=== PATIENT | female | born 2000 | race African-American/Black ===

== ENCOUNTER 2022-03-20 16:26 | Observation (INO) | payer OTHER, SELFPAY ==
--- NOTE | ~2022-03-20 | CT_ITS ---
EXAMINATION: CT abdomen pelvis w con DATE: 03/20/2022 20:22 INDICATION: Abscess of the buttocks TECHNIQUE: Computed tomography (CT) of the abdomen and pelvis was performed with 100 cc Omnipaque 350 intravenous contrast. The dose-length product was 765.65 mGy-cm. Automated exposure control and iter ative reconstruction technique were employed. COMPARISON: None. FINDINGS: Lung bases are unremarkable. Heart size normal. No significant pleural or pericardial effus ion. The liver, spleen, pancreas, adrenal glands and kidneys are unremarkable. Gallbladder is present . No free air or free fluid. There are mildly enlarged inguinal lymph nodes, likely reactive. No abno rmal pelvic masses or fluid collections. In the gluteal region there is an irregular shaped fluid col lection with enhancing de la rosa measuring 8.4 x 4.8 x 8.8 cm, consistent with abscess. Fluid collection crosses the midline. No underlying osseous abnormality. IMPRESSION: 1. Irregular shaped abscess of the posterior subcutaneous soft tissues at the sacral level measuring 8.4 x 4.8 x 8.8 cm. Reviewed, dictated and finalized at location A. IMPRESSION: 1. Irregular shaped abscess of the posterior subcutaneous soft tissues at the s acral level measuring 8.4 x 4.8 x 8.8 cm.
[2022-03-20 16:29] VITALS: BP 124/77; PULSE 107; RESP 20; TEMP 36.3; O2SAT 100
--- NOTE | 2022-03-20 19:16 | ED.SKABFB ---
HPI - Skin/Abscess/Foreign Bdy General Chief complaint: Skin/Abscess/Foreign Body <Andreina Mooney PA-C - Last Filed: 03/21/22 00:28> Stated complaint: abcess to buttocks <Andreina Mooney PA-C - Last Filed: 03/21/22 00:28> Time Seen by Provider: 03/20/22 18:53 <Andreina Mooney PA-C - Last Filed: 03/21/22 00:28> Source: patient <Andreina Mooney PA-C - Last Filed: 03/21/22 00:28> Mode of arrival: ambulatory <Andreina Mooney PA-C - Last Filed: 03/21/22 00:28> Limitations: no limitations <Andreina Mooney PA-C - Last Filed: 03/21/22 00:28> History of Present Illness HPI narrative: This is a 21-year-old female that presents to the emergency department for an abscess to her left buttock present over the last 2 weeks. Reports over the last couple of days she has noted an area to the right buttock as well. She has not had any drainage from the area. Denies fevers. <Andreina Mooney PA-C - Last Filed: 03/21/22 00:28> Related Data Allergies/Adverse reactions: Allergies Allergy/AdvReac Type Severity Reaction Status Date / Time No Known Allergies Allergy Verified 03/21/22 00:38 <Andreina Mooney PA-C - Last Filed: 03/21/22 00:28> Review of Systems Review of Systems: CONSTITUTIONAL: Denies fever GASTROINTESTINAL: Denies vomiting SKIN: Reports abscess <Andreina Mooney PA-C - Last Filed: 03/21/22 00:28> All systems reviewed & are unremarkable except as noted in HPI and below <Andreina Mooney PA-C - Last Filed: 03/21/22 00:28> [facility] Past Medical History Medical History: Medical History (Updated 03/21/22 @ 00:28 by Andreina Mooney PA-C) No active medical problems <Andreina Mooney PA-C - Last Filed: 03/21/22 00:28> Social History Social History: Social History (Updated 03/20/22 @ 19:17 by Andreina Mooney PA-C) Smoking status: Never smoker Alcohol intake: never Substance use: former Spiritual care concerns: No <Andreina Mooney PA-C - Last Filed: 03/21/22 00:28> Exam Narrative: GENERAL: Well-appearing, well-nourished, and in no acute distress. HEAD: Normocephalic, atraumatic. EYES: EOMI. CHEST: No respiratory distress. HEART: Regular rate BACK: Left buttock with moderate sized area of erythema and edema with central fluctuance. Right sided small area of erythema and edema EXTREMITIES: Normal range of motion. No edema. SKIN: Warm, dry, no rash. NEURO: No focal deficits. Alert and oriented x3. PSYCH: Normal mood and affect <Andreina Mooney PA-C - Last Filed: 03/21/22 00:28> Course [employer] OPERATOR/PA Physician Supervision For this patient encounter, I reviewed the [employer] PA[employer] MIXER OPERATOR or PA documentation, treatment plan, and medical decision making; and I had [id number] time with this patient. Assisted identifying the abscess using ultrasound. Abscess was drained and packing was applied. Patient was started antibiotics and admitted for further evaluation. <Roderick Prasad MD - Last Filed: 03/21/22 01:03> Consultations Consultation #1: Spoke with Dr. Dudley about patient and work-up who will consult. <Andreina Mooney PA-C - Last Filed: 03/21/22 00:28> Date: 03/21/22 <Andreina Mooney PA-C - Last Filed: 03/21/22 00:28> Consultation #2: Spoke with hospitalist about patient and work-up who accepts admission <Andreina Mooney PA-C - Last Filed: 03/21/22 00:28> Date: 03/20/22 <Andreina Mooney PA-C - Last Filed: 03/21/22 00:28> Vital Signs Vital signs: Vital Signs Temperature 97.4 F L 03/20/22 16:29 Pulse Rate 107 H 03/20/22 16:29 Respiratory Rate 20 03/20/22 16:29 Blood Pressure 124/77 03/20/22 16:29 Pulse Oximetry 100 03/20/22 16:29 Oxygen Delivery Room Air 03/20/22 16:29 Temperature 97.4 F L 03/20/22 16:29 Pulse Rate 98 03/20/22 22:40 Respiratory Rate 16 03/20/22 22:40 Blood Pressure 130/76 03/20/22 22:40 Pulse Oximetry 98 03/20/22 22:40 Oxygen Delivery Room Air 03/20/22 16:29
[2022-03-20 19:45] LABS: Basophils Absolute Auto 0.1 K/mm3 (0.0-0.1); Basophils Percent Auto 0.4 % (0.2-1.2); Eosinophils Absolute Auto 0.3 K/mm3 (0-0.3); Eosinophils Percent Auto 1.3 % (0-4.4); Hematocrit 42.4 % (37.0-47.0); Hemoglobin 14.7 g/dL (12.0-15.0); Immature Granulocyte Absolute 0.15 K/mm3 (0.00-0.031); Immature Granulocyte Percent A 0.7 % (0-0.5); Lymphocytes Absolute Auto 1.99 K/mm3 (0.9-3.2); Lymphocytes Percent Auto 9.3 % (18.3-44.2); Mean Corpuscular HGB Conc 34.7 g/dl (32-36); Mean Corpuscular Hemoglobin 30.2 pg (26-34); Mean Corpuscular Volume 87.2 fl (80-100); Mean Platelet Volume 8.9 fl (7.4-10.4); Monocytes Absolute Auto 1.4 K/mm3 (0.1-0.6); Monocytes Percent Auto 6.3 % (2.6-8.5); Neutrophils Absolute Auto 17.6 K/mm3 (1.3-6.7); Platelet Count Result 400 k/mm3 (150-375); Red Blood Count 4.86 M/mm3 (4.2-5.4); Red Cell Distribution Width 12.2 % (11.5-14.5); White Blood Count 21.4 K/mm3 (4.5-10.0)
[2022-03-20 20:17] LABS: Estimated CRCL calculation 112 ml/min; Estimated Glomerular Filt Rate > 60
[2022-03-20 20:19] LABS: Alanine Aminotransferase 23 U/L (6-35); Albumin Level 3.9 g/dL (3.7-5.6); Alkaline Phosphatase 111 U/L (45-116); Anion Gap 11 mmol/L (8-16); Aspartate Amino Transferase 24 U/L (14-36); Bilirubin,Total 0.6 mg/dL (0.2-1.3); Blood Urea Nitrogen 7 mg/dL (8-21); Calcium 8.9 mg/dL (8.9-10.7); Carbon Dioxide 26 mmol/L (22-30); Chloride 102 mmol/L (98-107); Estimated CRCL calculation 99 ml/min; Estimated Glomerular Filt Rate > 60; Glucose 104 mg/dL (65-110); Potassium 3.6 mmol/L (3.4-5.0); Sodium 139 mmol/L (134-143)
[2022-03-20 20:41] LABS: CRP 23.6 mg/dL (<1.0)
[2022-03-20 20:43] LABS: Erythrocyte Sedimentation Rate 37 mm/hr (0-20)
[2022-03-20] MEDS: metroNIDAZOLE 500 MG/ISO 100ML 500 MG/100 ML BAG 100 MG IVPB (20:57)
[2022-03-20] MEDS: SODIUM CHLORIDE 0.9% IV 1,000 ML 999 ML IV CONT (20:57)
--- NOTE | 2022-03-20 21:15 | PM.IMHP ---
H&P: HPI History of Present Illness Date/Time: 03/20/22 21:15 Chief Complaint: buttock abscess Narrative: This is a 21-year-old female with known significant past medical history patient presents to the emergency room due to area of pain, tenderness, bulging, of her left buttock according to patient has been developing over the last 2 weeks or so and just got worse over the last couple of days. Patient denies any fevers, rigors, chills, nausea, vomiting, abdominal pain, diarrhea. Patient had I&D in the emergency room. Preliminary workup was significant for WBC 21,000, CT of abdomen and pelvis: IMPRESSION: 1. Irregular shaped abscess of the posterior subcutaneous soft tissues at the sacral level measuring 8.4 x 4.8 x 8.8 cm. Review of Systems Review of Systems: left buttock tenderness, swelling, for the last couple of weeks. Constitutional: Constitutional: Denies chills, Denies fever(s), Denies malaise, Denies night sweats and Denies poor appetite Eyes: Eyes: Denies change in vision ENT: Denies dysphagia, Denies vertigo, Denies dizziness and Denies odynophagia Cardiovascular: Cardiovascular: Denies chest pain, Denies irregular heart rhythm, Denies lightheadedness and Denies palpitations Respiratory: Respiratory: Denies chest congestion and Denies cough Gastrointestinal: Gastrointestinal: Denies abdominal pain, Denies dyspepsia, Denies heartburn, Denies diarrhea and Denies nausea Genitourinary: Genitourinary: Reports no additional female genitourinary complaints and Reports as per HPI Musculoskeletal: Musculoskeletal: Reports no additional musculoskeletal complaints and Reports as per HPI Integumentary/Breasts: Skin/Breast: Reports swelling and Reports erythema Comments: left buttock Neurologic: Denies vertigo, Denies dizziness, Denies focal weakness and Denies Sensory deficit (Neuro) Psychiatric: Psychiatric: Reports no additional psychiatric complaints and Reports as per HPI Endocrine: Endocrine: Denies cold intolerance, Denies flushing, Denies heat intolerance, Denies polyphagia, Denies polydipsia and Denies palpitations Hematologic/Lymphatic: Hematologic/Lymphatic: Reports no additional hematologic/lymphatic complaints and Reports as per HPI Allergic/Immunologic: Allergic/Immunologic: Reports no additional allergic/immunologic complaints and Reports as per HPI [facility] Past Medical History Medical History (Updated 03/21/22 @ 03:02 by Rita Ocampo MD) No active medical problems Social History Social History (Updated 03/20/22 @ 19:17 by Andreina Mooney PA-C) Smoking status: Never smoker Alcohol intake: never Substance use: former Spiritual care concerns: No Meds Home Medications and Allergies Allergies Allergy/AdvReac Type Severity Reaction Status Date / Time No Known Allergies Allergy Verified 03/21/22 00:38 Vital Signs Vital Signs - 24 hr 03/20/22 16:29 Temperature 97.4 F L Pulse Rate 107 H Respiratory Rate 20 Blood Pressure 124/77 Pulse Oximetry 100 Oxygen Delivery Room Air Exam Narrative: patient is laying in prone position in stretcher Const: General: comfortable, no acute distress, well developed, alert, awake and average body habitus Nutritional Appearance: average body habitus Orientation/consciousness: patient oriented x3 HENMT: Head: normal to inspection, normocephalic and atraumatic Ears: hearing grossly normal bilaterally Face/Nose/Sinus: normal facial exam Face and sinus: normal facial exam Eyes: General: appearance normal, both eyes and all related structures Pupils: Equal, round and reactive pupils present EOM: EOMs intact bilaterally Neck: Neck: full ROM, no lymphadenopathy and no JVD Thyroid: thyroid normal Lymphatic: no lymphadenopathy noted Resp: Effort & Inspection: normal respiratory effort and able to speak in complete sentences Auscultation: clear to auscultation bilaterally Cardio: Jugular venous distension: no JVD Rate: r
[2022-03-20 22:40] VITALS: BP 130/76; PULSE 98; RESP 16; O2SAT 98
[2022-03-20] MEDS: KETOROLAC 15 MG/ML VIAL (*BKC) (23:06)
[2022-03-21] LABS: SARS-CoV-2 RNA PCR Negative
[2022-03-21 00:10] VITALS: BP 97/58; PULSE 115; RESP 18; TEMP 35.8; O2SAT 98
--- NOTE | 2022-03-21 00:25 | ADMGEN ---
This patient, James Edouard, was admitted to Medical Room 344-01. Patient/family oriented to hospital policies and general routines including ID bracelet, bed and alarms, visiting hours, pain management, procedures, bathroom and other care routines, personal items, smoking policy, room service/diet, and visiting hours. Information on how to activate the Rapid Response Team has been discussed. Patient/Family are encouraged to report perceived risks to care and to ask questions if they do not understand what they are told or what they should do.
[2022-03-21] MEDS: DEXTROSE 5%/0.45% SOD CHL 1,000 ML 75 ML IV CONT ×2 (03:58→21:35)
[2022-03-21 04:03] VITALS: BP 96/50; PULSE 97; RESP 18; TEMP 36.1; O2SAT 100
--- NOTE | 2022-03-21 04:18 | PC.NURSE ---
Dr Galloway notified of bp 96/50 pt asymptomatic, will monitor. IVF started
[2022-03-21] MEDS: metroNIDAZOLE 500 MG/ISO 100ML 500 MG/100 ML BAG 100 MG IVPB ×3 (04:54→21:32)
[2022-03-21 05:40] LABS: Basophils Absolute Auto 0.1 K/mm3 (0.0-0.1); Basophils Percent Auto 0.4 % (0.2-1.2); Eosinophils Absolute Auto 0.4 K/mm3 (0-0.3); Eosinophils Percent Auto 1.5 % (0-4.4); Hematocrit 35.5 % (37.0-47.0); Immature Granulocyte Absolute 0.22 K/mm3 (0.00-0.031); Immature Granulocyte Percent A 0.9 % (0-0.5); Lymphocytes Absolute Auto 2.79 K/mm3 (0.9-3.2); Lymphocytes Percent Auto 11.9 % (18.3-44.2); Mean Corpuscular HGB Conc 33.8 g/dl (32-36); Mean Corpuscular Hemoglobin 29.9 pg (26-34); Mean Corpuscular Volume 88.5 fl (80-100); Mean Platelet Volume 9.2 fl (7.4-10.4); Monocytes Absolute Auto 1.9 K/mm3 (0.1-0.6); Neutrophils Absolute Auto 18.2 K/mm3 (1.3-6.7); Neutrophils Percent Auto 77.3 % (45.5-73.1); Platelet Count Result 355 k/mm3 (150-375); Red Blood Count 4.01 M/mm3 (4.2-5.4); Red Cell Distribution Width 12.2 % (11.5-14.5); White Blood Count 23.5 K/mm3 (4.5-10.0)
[2022-03-21 05:56] LABS: Alanine Aminotransferase 16 U/L (6-35); Alkaline Phosphatase 73 U/L (45-116); Anion Gap 11 mmol/L (8-16); Aspartate Amino Transferase 15 U/L (14-36); Bilirubin,Total 0.5 mg/dL (0.2-1.3); Blood Urea Nitrogen 6 mg/dL (8-21); Calcium 8.1 mg/dL (8.9-10.7); Carbon Dioxide 28 mmol/L (22-30); Chloride 101 mmol/L (98-107); Estimated CRCL calculation 99 ml/min; Estimated Glomerular Filt Rate > 60; Glucose 119 mg/dL (65-110); Potassium 3.2 mmol/L (3.4-5.0); Sodium 140 mmol/L (134-143)
[2022-03-21] MEDS: ENOXAPARIN 40 MG/0.4 ML SYRINGE SUB-Q (08:05)
[2022-03-21] MEDS: traMADol HCL (*CRX) 50 MG TABLET PO ×2 (08:37→14:16)
--- NOTE | 2022-03-21 10:06 | PM.CNGS ---
Assessment and Plan Assessment and plan (1) Pilonidal cyst with abscess: Code(s): L05.01 - Pilonidal cyst with abscess Status: Acute Assessment and Plan: Based on the patient's history of possible brief swelling and clearance of lumps along the crease I suspect that the infection she currently has is related to a pilonidal cyst that became infected and then tunneled under the subcutaneous tissues in the sacral coccygeal area. Patient now has a fairly large abscess possibly related to a pilonidal cyst infection. At this time it seems to be drained well and most of the purulence can be compressed out of the area to the opening made in the ED. Plan will be to continue daily showering and dressing change with repacking of the abscess allowing it to heal in from right to left. Continuing IV antibiotics empirically until cultures return then plan to convert to oral antibiotics tailored to the type of bacteria and antibiotic sensitivity for a possible total 10-14 day course of antibiotics. Hopefully if cultures return and we can focus the antibiotic therapy and patient may be able to be discharged this weekend. She has a roommate at [facility] who is a nursing home director. She will contact her to see if she would be willing to help with the packing / dressing changes once patient is discharged. Will then plan to follow her up in the office late next week and continue to work with her to get this abscess cleared up. I did mention to her that eventually once the infection is gone she may need a pilonidal cystectomy to try to prevent future occurrences of the same problem. (2) Abscess of skin or subcutaneous tissue: Qualifiers: Site of cutaneous abscess: buttock Qualified Code(s): L02.31 - Cutaneous abscess of buttock Code(s): L02.91 - Cutaneous abscess, unspecified Status: Acute Assessment and Plan: see plan above. (3) Leukocytosis: Code(s): D72.829 - Elevated white blood cell count, unspecified Status: Acute Assessment and Plan: Still elevated today but there was a lot of purulence still within the abscess cavity that was noted on CT scan. This was compressed out today during the dressing change. History of Present Illness Consult details Consult date: 03/21/22 Reason for consult: other (Abscess left upper inner buttock near the midline) Requesting physician: Rita Ocampo MD Narrative: ?This is a 21-year-old Black female with no known significant past medical history. The patient presented to the [facility] room on the evening of 03/20/2022 due to an area of pain, tenderness, and bulging of her left buttock. According to patient it has been developing over the last 2 weeks or so and just got worse over the last couple of days with mainly enlargement and increasing pain.? Patient denies any fevers, rigors, chills, nausea, vomiting, abdominal pain, diarrhea.? Patient had I&D in the emergency room with a culture taken and quarter-inch Nu Gauze packing inserted after the incision and drainage. Preliminary workup was significant for WBC 21,000 with most other labs being normal. A CT of abdomen and pelvis showed and 8 x 8 x 4 cm area of suspected abscess more to the left but that did cross the midline toward the right overlying the lower sacrum and coccyx area. Review of Systems Review of Systems: All systems reviewed & are unremarkable except as noted in HPI and below (HPI) Constitutional: Constitutional: Reports as per HPI, Denies chills and Denies fever(s) Eyes: Eyes: Reports no additional eye complaints ENT: Reports Normal hearing present and Denies dizziness Cardiovascular: Cardiovascular: Reports no additional cardiovascular complaints, Denies chest pain and Denies irregular heart rhythm Respiratory: Respiratory: Reports no additional respiratory complaints Gastrointestinal: Gastrointestinal: Reports no additional gastrointestinal complaints, Denies ab
--- NOTE | 2022-03-21 11:22 | PM.IMPN ---
Progress Note: A&P Assessment and Plan (1) Abscess of skin or subcutaneous tissue: Qualifiers: Site of cutaneous abscess: buttock Qualified Code(s): L02.31 - Cutaneous abscess of buttock Code(s): L02.91 - Cutaneous abscess, unspecified Status: Acute Assessment and Plan: admit to regular medical floor status post I&D in the emergency room surgery consult started on Keflex and Flagyl IV fluids supportive care CT of abdomen and pelvis reviewed (2) Leukocytosis: Code(s): D72.829 - Elevated white blood cell count, unspecified Status: Acute Assessment and Plan: likely secondary to 1. Continue to monitor Subjective Date/time seen: 03/21/22 11:22 Patient was seen during the morning rounds today. Feeling slightly better, pain controlled, no sob or chest pain. Review of Systems Review of Systems: All systems reviewed & are unremarkable except as noted in HPI and below (the history and physical exam.) Constitutional: Constitutional: Denies chills, Denies fever(s), Denies malaise, Denies night sweats and Denies poor appetite Eyes: Eyes: Denies change in vision ENT: Denies dysphagia, Denies vertigo, Denies dizziness and Denies odynophagia Cardiovascular: Cardiovascular: Denies chest pain, Denies irregular heart rhythm, Denies lightheadedness and Denies palpitations Respiratory: Respiratory: Denies chest congestion and Denies cough Gastrointestinal: Gastrointestinal: Denies abdominal pain, Denies dysphagia, Denies dyspepsia, Denies heartburn, Denies diarrhea, Denies nausea and Denies odynophagia Genitourinary: Genitourinary: Reports no additional female genitourinary complaints and Reports as per HPI Musculoskeletal: Musculoskeletal: Reports no additional musculoskeletal complaints and Reports as per HPI Integumentary/Breasts: Skin/Breast: Reports swelling and Reports erythema Neurologic: Denies vertigo, Denies dizziness, Denies focal weakness and Denies Sensory deficit (Neuro) Psychiatric: Psychiatric: Reports no additional psychiatric complaints and Reports as per HPI Endocrine: Endocrine: Denies cold intolerance, Denies flushing, Denies heat intolerance, Denies polyphagia, Denies polydipsia and Denies palpitations Hematologic/Lymphatic: Hematologic/Lymphatic: Reports no additional hematologic/lymphatic complaints and Reports as per HPI Allergic/Immunologic: Allergic/Immunologic: Reports no additional allergic/immunologic complaints and Reports as per HPI Exam Narrative: patient is laying comfortably in bed. Const:?? General: comfortab le, no acute distr ess, well develope d, alert, awake an d average body hab itus? Nutritional Appearance: averag e body habitus? Or ientation/consciou sness: patient lavelle ented x3 HENMT:?? Head: normal to in spection, normocep halic and atraumat ic? Ears: hearing grossly normal yeni aterally? Face/Nos e/Sinus: normal fa cial exam? Face an d sinus: normal fa cial exam Eyes:?? General: appearanc e normal, both eye s and all related structures? Pupils : Equal, round and reactive pupils p resent? EOM: EOMs intact bilaterally Neck:?? Neck: full ROM, no lymphadenopathy a nd no JVD? Thyroid : thyroid normal? Lymphatic: no lymp hadenopathy noted Resp:?? Effort & I
[2022-03-21] MEDS: POTASSIUM CHLORIDE 20 MEQ TABLET 40 MEQ PO (12:28)
[2022-03-21 14:00] VITALS: BP 95/58; PULSE 84; RESP 20; TEMP 36.3; O2SAT 100
[2022-03-21 21:55] VITALS: BP 101/57; PULSE 75; RESP 20; TEMP 36.8; O2SAT 100
[2022-03-22 05:42] LABS: Basophils Absolute Auto 0.1 K/mm3 (0.0-0.1); Basophils Percent Auto 0.7 % (0.2-1.2); Eosinophils Absolute Auto 0.5 K/mm3 (0-0.3); Eosinophils Percent Auto 4.2 % (0-4.4); Hematocrit 33.1 % (37.0-47.0); Hemoglobin 11.4 g/dL (12.0-15.0); Immature Granulocyte Absolute 0.17 K/mm3 (0.00-0.031); Immature Granulocyte Percent A 1.4 % (0-0.5); Lymphocytes Absolute Auto 2.86 K/mm3 (0.9-3.2); Lymphocytes Percent Auto 23.5 % (18.3-44.2); Mean Corpuscular HGB Conc 34.4 g/dl (32-36); Mean Corpuscular Volume 87.1 fl (80-100); Monocytes Absolute Auto 0.9 K/mm3 (0.1-0.6); Monocytes Percent Auto 7.2 % (2.6-8.5); Neutrophils Absolute Auto 7.7 K/mm3 (1.3-6.7); Platelet Count Result 335 k/mm3 (150-375); Red Cell Distribution Width 12.4 % (11.5-14.5); White Blood Count 12.2 K/mm3 (4.5-10.0)
[2022-03-22] MEDS: metroNIDAZOLE 500 MG/ISO 100ML 500 MG/100 ML BAG 100 MG IVPB (05:43)
[2022-03-22 05:55] LABS: Anion Gap 10 mmol/L (8-16); Blood Urea Nitrogen 5 mg/dL (8-21); Calcium 8.1 mg/dL (8.9-10.7); Carbon Dioxide 27 mmol/L (22-30); Chloride 104 mmol/L (98-107); Estimated CRCL calculation 112 ml/min; Estimated Glomerular Filt Rate > 60; Glucose 111 mg/dL (65-110); Potassium 3.6 mmol/L (3.4-5.0); Sodium 141 mmol/L (134-143)
[2022-03-22 06:00] VITALS: BP 106/62; PULSE 70; RESP 16; TEMP 36.5; O2SAT 100
[2022-03-22] MEDS: ENOXAPARIN 40 MG/0.4 ML SYRINGE SUB-Q (08:06)
--- NOTE | 2022-03-22 11:02 | PM.DS ---
DS: Admitting Diagnosis Discharge Date 03/22/2022 Admitting Diagnosis abscess DS: Discharge Diagnosis Discharge Diagnosis (1) Abscess of skin or subcutaneous tissue: Qualifiers: Site of cutaneous abscess: buttock Qualified Code(s): L02.31 - Cutaneous abscess of buttock Code(s): L02.91 - Cutaneous abscess, unspecified Status: Acute Assessment and Plan: admit to regular medical floor status post I&D in the emergency room surgery consult started on Keflex and Flagyl IV fluids supportive care CT of abdomen and pelvis reviewed (2) Leukocytosis: Code(s): D72.829 - Elevated white blood cell count, unspecified Status: Acute Assessment and Plan: likely secondary to 1. Continue to monitor DS: Summary Hospital Course Reason for hospitalization: Abscess Hospital Course: 21-year-old female was admitted complains of having abscess. patient abscess was drained and culture was sent. Patient was given IV antibiotics. Culture shows mixed samara, will monitor report. Today patient is feeling better so patient was discharged home stable condition. Status at Discharge Cognitive/behavioral status at discharge: Stable Time Spent with Patient Time attestation: Total time spent providing and/or coordinating discharge services: Exam Narrative: patient is laying comfortably in bed. Const:?? General: comfortab le, no acute distr ess, well develope d, alert, awake an d average body hab itus? Nutritional Appearance: averag e body habitus? Or ientation/consciou sness: patient lavelle ented x3 HENMT:?? Head: normal to in spection, normocep halic and atraumat ic? Ears: hearing grossly normal yeni aterally? Face/Nos e/Sinus: normal fa cial exam? Face an d sinus: normal fa cial exam Eyes:?? General: appearanc e normal, both eye s and all related structures? Pupils : Equal, round and reactive pupils p resent? EOM: EOMs intact bilaterally Neck:?? Neck: full ROM, no lymphadenopathy a nd no JVD? Thyroid : thyroid normal? Lymphatic: no lymp hadenopathy noted Resp:?? Effort & Inspectio n: normal respirat ory effort and abl e to speak in comp lete sentences? Au scultation: clear to auscultation bi laterally Cardio:?? Jugular venous dis tension: no JVD? R ate: regular rate? Rhythm: regular r hythm? Heart sound s: S1 normal heart sound present and S2 normal heart s ound present GI:?? GI Palp: Yes Soft to palpation and Y es No hepatospleno megaly present :?? General: Yes defer red Skin:?? Rashes: no rashes? Wounds: no wounds ? Other: ?left but tock area of fluct uance discoloratio n and tenderness u pper inner quadran t Neuro:?? General: patient o
--- NOTE | 2022-03-22 11:13 | PM.PNGS ---
Progress Note: A&P Assessment and Plan (1) Pilonidal cyst with abscess: Code(s): L05.01 - Pilonidal cyst with abscess Status: Acute Assessment and Plan: Okay to discharge today. Continue Bactrim and Cipro as prescribed. Follow-up with Dr. Dudley in 1 week. Subjective Subjective Date/Time Seen: 03/22/22 11:13 Interval history: Pain improving. Tolerating packing changes. No fevers. Exam Skin: Other: Minimal purulence drainage from pilonidal abscess I and D site. No surrounding erythema. Objective Data Vital Signs Vital Signs: Vital Signs - 24 hr 03/21/22 14:00 03/21/22 21:55 03/22/22 06:00 Temperature 36.3 C L 36.8 C 36.5 C Pulse Rate 84 75 70 Respiratory Rate 20 20 16 Blood Pressure 95/58 L 101/57 L 106/62 Pulse Oximetry 100 100 100 Intake/Output Intake/Output: Intake & Output 03/19/22 03/20/22 03/21/22 03/22/22 23:59 23:59 23:59 23:59 Intake Total 1150 3340 690 Output Total 400 Balance 1150 2940 690 Meds/Results Medications: Active Medications Generic Name Dose Route Start Last Admin Trade Name Freq PRN Reason Stop Dose Admin Acetaminophen 1,000 mg 03/21/22 03:04 Acetaminophen 500 Mg Tablet PO Q6H PRN Mild Pain (1-3) or Fever Docusate Sodium 100 mg 03/21/22 03:05 Docusate Sodium 100 Mg Capsule PO Q12H PRN Constipation Enoxaparin Sodium 40 mg 03/21/22 09:00 03/22/22 08:06 Enoxaparin 40 Mg/0.4 Ml Syringe SUB-Q 40 mg DAILY KASH Administration Cefazolin Sodium 1 gm in 50 mls @ 100 mls/hr 03/21/22 05:00 03/22/22 06:14 Ancef 1 Gm/D5w 50 Ml Pm IVPB Infused Q8H KASH Infusion Metronidazole 500 mg in 100 mls @ 100 mls/hr 03/21/22 05:00 03/22/22 06:40 Flagyl 500 Mg/Iso Soln 100 Ml IVPB Infused Q8H KASH Infusion Dextrose/Sodium Chloride 1,000 mls @ 75 mls/hr 03/21/22 03:05 03/21/22 21:35 Dextrose 5% Sodium Chloride 0.45% IV CONT 75 mls/hr .[id number] KASH Administration Tramadol HCl 50 mg 03/21/22 03:04 03/21/22 14:16 Tramadol Hcl (*Crx) 50 Mg Tablet PO 50 mg Q4H PRN Administration Pain Rated 4-6 Radiology Results: ITS Impressions Abdomen/Pelvis CT 03/20/22 20:33 IMPRESSION: 1. Irregular shaped abscess of the posterior subcutaneous soft tissues at the sacral level measuring 8.4 x 4.8 x 8.8 cm. Labs Labs: Laboratory Results - last 24 hr 03/22/22 03/22/22 05:22 05:22 WBC 12.2 H RBC 3.80 L Hgb 11.4 L Hct 33.1 L MCV 87.1 MCH 30.0 MCHC 34.4 RDW 12.4 Plt Count 335 MPV 9.0 Immature Gran % (Auto) 1.4 H Neut % (Auto) 63.0 Lymph % (Auto) 23.5 Dickson % (Auto) 7.2 Eos % (Auto) 4.2 Baso % (Auto) 0.7 Lymph # (Auto) 2.86 Dickson # (Auto) 0.9 H Eos # (Auto) 0.5 H Baso # (Auto) 0.1 Abs Immat Gran (auto) 0.17 H Absolute Neuts (auto) 7.7 H Absolute Nucleated RBC 0.0 Nucleated RBC % 0.0 Sodium 141 Potassium 3.6 Chloride 104 Carbon Dioxide 27 Anion Gap 10 BUN 5 L Creatinine 0.70 Estim Creat Clear Calc 112 Estimated GFR > 60 Glucose 111 H Calcium 8.1 L
[2022-03-22] MEDS: traMADol HCL (*CRX) 50 MG TABLET PO (13:29)
== END 2022-03-22 14:45 | disposition home or self-care (01) ==
LOC: ANHED 19:36 → ANH3MED 03-21 00:28
PROVIDERS: Physician Assistant; Surgery; Admitting Provider Internal Medicine; Emergency Provider Emergency Medicine; Visit Provider Internal Medicine
DX: L05.01 Pilonidal cyst with abscess (principal); D72.829 Elevated white blood cell count, unspecified; Z20.822 Contact with and (suspected) exposure to COVID-19
CPT/HCPCS: 10060; 36415; 74177; 80048; 80053; 81025; 83605; 85025; 85652; 86140; 87040; 87070; 87205; 96361; 96365; 96366; 96367; 96368; 96372; 99285; A9270; C9803; G0378; G0379; J0690; J1650; J1885; J7030; Q9967; U0003; U0005

== ENCOUNTER 2023-01-30 11:00 | Emergency (ER) | payer OTHER, SELFPAY ==
[2023-01-30 11:11] VITALS: BP 116/76; PULSE 53; RESP 16; TEMP 36.8; O2SAT 100
--- NOTE | 2023-01-30 11:11 | ED.FEMALEGU ---
HPI - Female Genitourinary General Chief complaint: Urogenital-Female Stated complaint: uti symptoms Time Seen by Provider: 01/30/23 11:12 Source: patient, RN notes reviewed and old records reviewed Mode of arrival: ambulatory Limitations: no limitations History of Present Illness HPI Narrative: 22-year-old female presents to the [facility] with concerns for a UTI. Patient reports frequency urgency for couple of days. Denies any chances for STIs. Denies any abdominal pain or back pain. Denies fevers. Denies any vaginal discharge. Unsure of status Related Data Allergies Allergy/AdvReac Type Severity Reaction Status Date / Time No Known Allergies Allergy Verified 01/30/23 11:16 Review of Systems Review of Systems: All systems reviewed & are unremarkable except as noted in HPI and below Constitutional: Constitutional: Reports no additional constitutional complaints Eyes: Eyes: Reports no additional eye complaints ENT: Reports system reviewed and no additional complaints, except as documented Cardiovascular: Cardiovascular: Reports no additional cardiovascular complaints, Denies chest pain and Denies dyspnea Respiratory: Respiratory: Reports no additional respiratory complaints, Denies chest congestion, Denies cough and Denies dyspnea Gastrointestinal: Gastrointestinal: Reports no additional gastrointestinal complaints, Denies abdominal pain, Denies nausea and Denies vomiting Genitourinary: Genitourinary: Reports as per HPI Musculoskeletal: Musculoskeletal: Reports no additional musculoskeletal complaints Integumentary/Breasts: Skin/Breast: Reports system reviewed and no additional complaints, except as docu Neurologic: Reports system reviewed and no additional complaints, except as documented Psychiatric: Psychiatric: Reports no additional psychiatric complaints Allergic/Immunologic: Allergic/Immunologic: Reports no additional allergic/immunologic complaints [facility] Past Medical History Medical History No active medical problems Family History Family History Mother H/O pilonidal cyst Social History Social History Smoking status: Never smoker Alcohol intake: never Substance use: former Spiritual care concerns: No Comments At the time of my signature, I reviewed and agree with the nursing past medical, surgical, social, and family history. There is no relevant family history pertinent to the patient complaint. Exam Const: General: cooperative, healthy appearing, comfortable, no acute distress, well developed, alert and well nourished Nutritional Appearance: well nourished Orientation/consciousness: patient oriented x3 Limitations: no limitations HENMT: Head: normal to inspection Ears: hearing grossly normal bilaterally and external ears normal Face/Nose/Sinus: Normal external nose present, Normal nares present, Normal nasal mucous membranes and turbinates present and normal facial exam Face and sinus: normal facial exam Eyes: General: appearance normal, both eyes and all related structures Alignment and Position: alignment normal Periorbital: periorbital findings normal Pupils: Equal, round and reactive pupils present EOM: EOMs intact bilaterally Neck: Neck: normal visual inspection, full ROM, no lymphadenopathy and no meningeal signs Chest: Chest palpation & inspection: normal inspection of the chest Resp: Effort & Inspection: normal respiratory effort and able to speak in complete sentences Cardio: Rate: regular rate Rhythm: regular rhythm GI: GI Palp: No abdominal tenderness : General: Yes no CVA tenderness Back/Spine/Pelvis: Cervical Spine: cervical ROM normal Thoracic/Lumbar Spine: No thoracic spinal tenderness Skin: General skin exam: normal color and no rashes or lesions noted Lesions: no lesions
== END 2023-01-30 11:25 | disposition home or self-care (01) ==
PROVIDERS: Emergency Provider Nurse Practitioner
DX: N30.01 Acute cystitis with hematuria (principal)
CPT/HCPCS: 81003; 87086; 87088; 99213; G0463

== ENCOUNTER 2023-02-25 17:41 | Emergency (ER) | payer OTHER, SELFPAY ==
--- NOTE | ~2023-02-25 | CT_ITS ---
EXAMINATION: CT pelvis w con INDICATION: Pilonidal cyst TECHNIQUE: Computed tomographic images of the pelvis were obtained after the administration of 100 cc of Omnipaque 350 intravenous contrast. The dose-length product (DLP) was 677.53 mGy-cm. Automated ex posure control and iterative reconstruction technique were employed. COMPARISON: 03/20/2022 FINDINGS: The visualized portions of the liver, spleen, gallbladder, and kidneys appear normal. No fr ee intraperitoneal gas or evidence of bowel obstruction. There is a 4.5 x 3.6 x 4.5 cm abscess in the posterior subcutaneous tissues just caudal to the coccyx. The visualized osseous structures are unre markable. There is mild bilateral inguinal lymphadenopathy, likely reactive. A small volume of free f luid in the pelvis is likely physiologic. IMPRESSION: 1. Findings consistent with pilonidal cyst abscess Reviewed, dictated and finalized at location F.
[2023-02-25 17:43] VITALS: BP 117/96; PULSE 82; RESP 20; TEMP 37; O2SAT 100
--- NOTE | 2023-02-25 18:43 | ED.SKABFB ---
HPI - Skin/Abscess/Foreign Bdy General Chief complaint: Skin/Abscess/Foreign Body Stated complaint: pilonidal cyst Time Seen by Provider: 02/25/23 18:18 History of Present Illness HPI narrative: 22-year-old female with a history of infected pilonidal cyst reports for evaluation for painful and red pilonidal cyst to her buttock. Patient states she was hospitalized approximately 1 year ago for an infected pilonidal cyst. Upon chart review, her CT showed a sacral abscess measuring 8.4 x 4.8 x 8.8 cm, leukocytosis of 21.4, CRP 23.6. She was then admitted and seen by general surgery and discharged home with Bactrim and Cipro. She states since then, the cyst has become inflamed twice, both times have spontaneously drained. She has not needed to be started on antibiotics or had a repeat I&D. Patient states she began having pain and redness in this area 4 to 5 days ago. She states she does not feel the size of the abscess is as large as it was when she was admitted, however the pain is worse. She reports taking ibuprofen today without improvement. She is scheduled to see a surgeon for evaluation of the pilonidal cyst in 6 days. She denies fever, nausea or vomiting, pain with defecation, hematochezia, dysuria or hematuria, abdominal pain. Related Data Allergies Allergy/AdvReac Type Severity Reaction Status Date / Time No Known Allergies Allergy Verified 02/24/23 14:33 Review of Systems Review of Systems: CONSTITUTIONAL: Denies fever, chills EYES: Denies visual changes, redness, or discharge. ENT: Denies rhinorrhea, congestion, sore throat, or otalgia. CARDIOVASCULAR: Denies chest pain, palpitations, or edema. RESPIRATORY: Denies cough or dyspnea. GASTROINTESTINAL: Denies abdominal pain, nausea, vomiting, or diarrhea. GENITOURINARY: Denies dysuria or hematuria. SKIN: See HPI MUSCULOSKELETAL: Denies back pain, joint pain, or myalgia. NEUROLOGIC: Denies headache, numbness, dizziness, or weakness. PSYCHIATRIC: Denies anxiety or depression. [facility], [facility] Past Medical History Medical History Asthma No active medical problems Family History Family History Mother H/O pilonidal cyst Other Cancer Cerebrovascular accident Social History Social History Smoking status: Current every day smoker Tobacco type: cigars Alcohol intake: current Substance use: former Spiritual care concerns: No Exam Narrative: GENERAL: Well-appearing, in no acute distress. Patient resting comfortably in exam bed. She is pleasant and conversational. HEAD: Normocephalic EYES: PERRLA ENT: Nares clear. Mucous membranes moist. Oropharynx without tonsillar hypertrophy exudate or other lesions. NECK: Supple. CHEST: No respiratory distress. Clear to auscultation, no adventitious breath sounds. HEART: Regular rate and rhythm. No murmur heard. Normal peripheral pulses. ABDOMEN: Soft, nontender, normal active bowel sounds. EXTREMITIES: Normal range of motion. No edema. SKIN: Gluteal cleft with tenderness and induration. Left buttock with an area of warmth, tenderness and induration with a 1cm area of fluctuance. R buttock with an area of induration and warmth. No spontaneous drainage. NEURO: No focal deficits. Alert and oriented x3. PSYCH: Normal mood and affect. Course Vital Signs Vital signs: Vital Signs Temperature 98.6 F 02/25/23 17:43 Pulse Rate 82 02/25/23 17:43 Respiratory Rate 20 02/25/23 17:43 Blood Pressure 117/96 H 02/25/23 17:43 Pulse Oximetry 100 02/25/23 17:43 Oxygen Delivery Room Air 02/25/23 17:43 Temperature 98.6 F 02/25/23 17:43 Pulse Rate 95 02/25/23 20:15 Respiratory Rate 18 02/25/23 20:15 Blood Pressure 105/62 02/25/23 20:15 Pulse Oximetry 100 02/25/23 20:15 Oxygen Delivery Room Air 02/25/23 17:43
[2023-02-25 19:09] LABS: Basophils Percent Auto 0.3 % (0.2-1.2); Eosinophils Absolute Auto 0.1 K/mm3 (0-0.3); Eosinophils Percent Auto 0.5 % (0-4.4); Hematocrit 38.2 % (37.0-47.0); Hemoglobin 13.1 g/dL (12.0-15.0); Immature Granulocyte Absolute 0.05 K/mm3 (0.00-0.031); Immature Granulocyte Percent A 0.3 % (0-0.5); Lymphocytes Absolute Auto 1.66 K/mm3 (0.9-3.2); Lymphocytes Percent Auto 11.2 % (18.3-44.2); Mean Corpuscular HGB Conc 34.3 g/dl (32-36); Mean Corpuscular Volume 90.3 fl (80-100); Mean Platelet Volume 9.7 fl (7.4-10.4); Monocytes Absolute Auto 0.8 K/mm3 (0.1-0.6); Monocytes Percent Auto 5.6 % (2.6-8.5); Neutrophils Absolute Auto 12.1 K/mm3 (1.3-6.7); Neutrophils Percent Auto 82.1 % (45.5-73.1); Platelet Count Result 239 k/mm3 (150-375); Red Blood Count 4.23 M/mm3 (4.2-5.4); Red Cell Distribution Width 12.6 % (11.5-14.5); White Blood Count 14.8 K/mm3 (4.5-10.0)
[2023-02-25] MEDS: SODIUM CHLORIDE 0.9% IV 1,000 ML 999 ML IV CONT (19:11)
[2023-02-25] MEDS: MORPHINE SULFATE (*CRX) 4 MG/ML INJ IV PUSH (19:11)
[2023-02-25 19:22] LABS: Appearance Urine Clear (Clear); Bacteria Urine None Seen /hpf; Bilirubin Urine Negative (Negative); Blood Urine Trace (Negative); Color Urine Yellow (Yellow); Glucose Urine UA Negative (Negative); Ketones Urine 1+ mg/dL (Negative); Leukocyte Esterase Ur Trace LEU/UL (Negative); Nitrate Urine Negative (Negative); Non Pathogenic Casts 0-2; Protein Urine 1+ mg/dL (Negative); Specific Grav Ur 1.028 (1.001-1.035); Squamous Epithelial Cell Urine Occasional /hpf (Few)
[2023-02-25 19:25] LABS: Alanine Aminotransferase 16 U/L (6-35); Albumin Level 4.3 g/dL (3.5-5.1); Alkaline Phosphatase 78 U/L (38-126); Anion Gap 6 mmol/L (8-16); Aspartate Amino Transferase 19 U/L (14-36); Bilirubin,Total 0.6 mg/dL (0.2-1.3); Blood Urea Nitrogen 7 mg/dL (7-17); Calcium 8.9 mg/dL (8.4-10.2); Carbon Dioxide 26 mmol/L (22-30); Chloride 106 mmol/L (98-107); Estimated CRCL calculation 130 ml/min; Estimated Glomerular Filt Rate > 60; Glucose 92 mg/dL (65-110); Potassium 3.9 mmol/L (3.4-5.0); Sodium 138 mmol/L (137-145)
[2023-02-25 19:26] LABS: Add Urine Microscopic? YES
[2023-02-25 19:35] LABS: Erythrocyte Sedimentation Rate 26 mm/hr (0-20)
[2023-02-25 19:39] LABS: CRP 14.7 mg/dL (<1.0)
[2023-02-25 20:15] VITALS: BP 105/62; PULSE 95; RESP 18; O2SAT 100
[2023-02-25] MEDS: LIDO 1%/EPINEPHRINE 1:100,000 20 ML VIAL 10 ML INFILTRATE (21:10)
[2023-02-25] MEDS: SULFAMETHOXAZOLE/TRIMETHOPRIM 800/160 MG DS TABLET 1 TAB PO (21:58)
[2023-02-25] MEDS: CIPROFLOXACIN 500 MG TAB PO (21:58)
[2023-02-25 21:59] VITALS: BP 110/62; PULSE 77; RESP 17; O2SAT 100
== END 2023-02-25 21:59 | disposition home or self-care (01) ==
PROVIDERS: Emergency Provider Physician Assistant
DX: L05.01 Pilonidal cyst with abscess (principal); J45.909 Unspecified asthma, uncomplicated
CPT/HCPCS: 10061; 10080; 36415; 72193; 80053; 81001; 81025; 85025; 85652; 86140; 87086; 87088; 96361; 96374; 99284; A9270; J2270; J7030; Q9967

== ENCOUNTER 2023-04-21 05:44 | Emergency (ER) | payer OTHER, SELFPAY ==
[2023-04-21 05:47] VITALS: BP 118/86; PULSE 107; RESP 15; TEMP 36.1; O2SAT 99
--- NOTE | 2023-04-21 07:16 | PC.NURSE ---
Report given to TIBURCIO Prince at this time.
[2023-04-21 07:17] VITALS: BP 114/62; PULSE 79; RESP 16; O2SAT 100
--- NOTE | 2023-04-21 07:30 | ED.SKABFB ---
HPI - Skin/Abscess/Foreign Bdy General Chief complaint: Skin/Abscess/Foreign Body Stated complaint: cyst that grew an abcess Time Seen by Provider: 04/21/23 07:05 History of Present Illness HPI narrative: Pt has a recurrence of her pilonidal cyst. Pt has had in drained a couple of times prior. Pt has not seen a surgeon yet. Pt says it starts on left side and goes across to right but is not on right side yet. Pt denies drainage this time. Pt denies fever. Related Data Allergies Allergy/AdvReac Type Severity Reaction Status Date / Time No Known Allergies Allergy Verified 04/21/23 07:17 Review of Systems Review of Systems: All systems reviewed & are unremarkable except as noted in HPI and below PMFSH Past Medical History Medical History Asthma No active medical problems Family History Family History Mother H/O pilonidal cyst Other Cancer Cerebrovascular accident Social History Social History Smoking status: Current every day smoker Tobacco type: cigars Alcohol intake: current Substance use: former Spiritual care concerns: No Exam Const: General: healthy appearing Nutritional Appearance: well nourished Orientation/consciousness: patient oriented x3 Limitations: no limitations GI: Auscultation: normal bowel sounds Skin: General skin exam: normal color Rashes: no rashes Other: tender fluctuant area left of midline near upper gluteal cleft no extension to right side noted. Neuro: General: patient oriented x3, moves all extremities and no focal motor deficits Speech: normal speech Extrem: General: normal to inspection and no clubbing, cyanosis or edema Psych: Mental Status: mental status grossly normal Affect: normal affect Attitude: cooperative Course Vital Signs Vital signs: Vital Signs Temperature 97 F L 04/21/23 05:47 Pulse Rate 107 H 04/21/23 05:47 Respiratory Rate 15 04/21/23 05:47 Blood Pressure 118/86 04/21/23 05:47 Pulse Oximetry 99 04/21/23 05:47 Oxygen Delivery Room Air 04/21/23 05:47 Temperature 97 F L 04/21/23 05:47 Pulse Rate 119 H 04/21/23 07:47 Respiratory Rate 16 04/21/23 07:47 Blood Pressure 120/75 04/21/23 07:47 Pulse Oximetry 99 04/21/23 07:47 Oxygen Delivery Room Air 04/21/23 05:47 Procedures Abscess I/D maxime-rectal: Date of Incision: 04/21/23 Time of Incision: 07:48 Side (if applicable): left Local Anesthetic: lidocaine 1% Amount of anesthesia used (mL): 10 Technique: incised with #11 blade and probed loculations Amount of fluid expressed (mL): 4 I&D Results: Pus and Blood Abcess I&D Additional Comments: some purulent fluid and blood expressed but not large amount. not enough of a cavity to pack. could be early abscess so will start on antibiotics MDM - Skin/Abscess/Foreign Bdy MDM Narrative Medical decision making narrative: PT has recurrent pilonidal cyst extending at time across to other side but not this time yet. Will attempt to drain cyst and pack and have follow up with general surgery. Discharge Plan Discharge Clinical Impression: Abscess of skin or subcutaneous tissue Patient Disposition: Home, Self-Care Condition: Improved Instructions: Antibiotic Form, Pilonidal Cyst (ED) Prescriptions: New sulfamethoxazole-trimethoprim [Bactrim DS] 800-160 mg tablet 2 tablet PO Q12H Qty: 40 0RF hydrocodone-acetaminophen 5-325 mg tablet 1 tablet PO Q4H PRN (Reason: pain) Qty: 10 0RF No Action sulfamethoxazole-trimethoprim 800-160 mg tablet 1 tablet PO Q12H Qty: 14 0RF ciprofloxacin HCl 500 mg tablet 500 mg PO Q12H Qty: 14 0RF Follow-up/Referrals: PHYSICIAN,GLOBAL RISK MANAGEMENT DIRECTOR [Primary Care Provider] -
[2023-04-21 07:33] VITALS: BP 119/96; PULSE 92; RESP 16; O2SAT 100
[2023-04-21 07:47] VITALS: BP 120/75; PULSE 119; RESP 16; O2SAT 99
[2023-04-21 08:02] VITALS: BP 127/93; PULSE 83; RESP 16; O2SAT 100
== END 2023-04-21 08:10 | disposition home or self-care (01) ==
PROVIDERS: Emergency Provider Emergency Medicine
DX: L05.01 Pilonidal cyst with abscess (principal); F17.290 Nicotine dependence, other tobacco product, uncomplicated
CPT/HCPCS: 10060; 99283

== ENCOUNTER 2023-04-22 09:19 | Emergency (ER) | payer OTHER, SELFPAY ==
--- NOTE | ~2023-04-22 | CT_ITS ---
EXAMINATION: CT abdomen pelvis w con INDICATION: Gluteal abscess TECHNIQUE: Computed tomographic images of the abdomen and pelvis were obtained after the administrati on of 100 cc of Omnipaque 350 intravenous contrast. The dose-length product (DLP) was 888.84 mGy-cm. Automated exposure control and iterative reconstruction technique were employed. COMPARISON: 03/20/2022 FINDINGS: The lung bases are clear. The heart size is normal. The liver, spleen, pancreas, gallbladde r, and adrenal glands are normal. The kidneys are unremarkable. There is mild bilateral inguinal lymp hadenopathy. There is no free intraperitoneal gas or evidence of bowel obstruction. The appendix is n ormal. There is an approximately 5.2 x 2.5 cm soft tissue abscess of the left gluteal soft tissues. IMPRESSION: 1. Left gluteal soft tissue abscess. Reviewed, dictated and finalized at location B. RER
[2023-04-22 09:28] VITALS: BP 125/78; PULSE 126; RESP 18; TEMP 36.8; O2SAT 98
--- NOTE | 2023-04-22 10:11 | ED.SKABFB ---
HPI - Skin/Abscess/Foreign Bdy General Chief complaint: Skin/Abscess/Foreign Body Stated complaint: pilonidal cyst complication? Time Seen by Provider: 04/22/23 09:40 History of Present Illness HPI narrative: 22-year-old female history of pilonidal cysts presents to the emergency room for evaluation large abscess to her right upper gluteal region. Patient was seen yesterday, where the provider attempted to open up the abscess and was unable to express any purulent drainage. Patient was sent home with antibiotics and pain medicine. Related Data Allergies Allergy/AdvReac Type Severity Reaction Status Date / Time No Known Allergies Allergy Verified 04/21/23 07:17 Review of Systems Review of Systems: CONSTITUTIONAL: Denies fever, chills, or sweats. EYES: Denies visual changes, redness, or discharge. ENT: Denies rhinorrhea, congestion, sore throat, or otalgia. CARDIOVASCULAR: Denies chest pain, palpitations, or edema. RESPIRATORY: Denies cough or dyspnea. GASTROINTESTINAL: Denies abdominal pain, nausea, vomiting, or diarrhea. GENITOURINARY: Denies dysuria or hematuria. SKIN: Denies rash or itching. MUSCULOSKELETAL: Denies back pain, joint pain, or myalgia. NEUROLOGIC: Denies headache, numbness, dizziness, or weakness. PSYCHIATRIC: Denies anxiety or depression. [facility] Past Medical History Medical History Asthma No active medical problems Family History Family History Mother H/O pilonidal cyst Other Cancer Cerebrovascular accident Social History Social History Smoking status: Current every day smoker Tobacco type: cigars Alcohol intake: current Substance use: former Spiritual care concerns: No Exam Narrative: GENERAL: Well-appearing, well-nourished, no physical limitations, and in no acute distress. HEAD: Normocephalic, atraumatic. EYES: Conjunctivae normal, PERRLA and EOMI. CHEST: Clear to auscultation. No respiratory distress. No wheezes rales or rhonchi. HEART: Regular rate and rhythm. No murmur heard. Normal peripheral pulses. ABDOMEN: Soft, nontender, nondistended, normal active bowel sounds. EXTREMITIES: Normal range of motion. No edema. No clubbing or cyanosis SKIN: Large, tender, fluctuant area to right upper gluteal cleft NEURO: No focal deficits. Alert and oriented x3. MAEW. CN's II-XI intact bilaterally, normal gait PSYCH: Cooperative. Normal mood and affect. Course Vital Signs Vital signs: Vital Signs Temperature 36.8 C 04/22/23 09:28 Pulse Rate 126 H 04/22/23 09:28 Respiratory Rate 18 04/22/23 09:28 Blood Pressure 125/78 04/22/23 09:28 Pulse Oximetry 98 04/22/23 09:28 Oxygen Delivery Room Air 04/22/23 09:28 Temperature 36.8 C 04/22/23 09:28 Pulse Rate 126 H 04/22/23 09:28 Respiratory Rate 18 04/22/23 09:28 Blood Pressure 125/78 04/22/23 09:28 Pulse Oximetry 98 04/22/23 09:28 Oxygen Delivery Room Air 04/22/23 09:28 Procedures Abscess I/D maxime-rectal: Date of Incision: 04/22/23 Time of Incision: 10:14 Side (if applicable): right Local Anesthetic: lidocaine 1% and with epi Amount of anesthesia used (mL): 10 Technique: incised with #11 blade and probed loculations Amount of fluid expressed (mL): 50 Irrigation: Yes Packing used?: plain I&D Results: Pus MDM - Skin/Abscess/Foreign Bdy MDM Narrative Medical decision making narrative: 22-year-old female returns to the emergency room for evaluation of a right upper gluteal abscess. Patient was seen yesterday, and the provider was unable to express any purulent drainage. Patient has been on Bactrim for 24 hours. I&D was performed with large amount of purulent drainage, packing was placed. CT scan shows no evidence of tracking. Will have patient panda
[2023-04-22 10:32] LABS: Basophils Absolute Auto 0.1 K/mm3 (0.0-0.1); Basophils Percent Auto 0.4 % (0.2-1.2); Eosinophils Absolute Auto 0.1 K/mm3 (0-0.3); Eosinophils Percent Auto 0.3 % (0-4.4); Hematocrit 41.1 % (37.0-47.0); Hemoglobin 13.6 g/dL (12.0-15.0); Immature Granulocyte Absolute 0.13 K/mm3 (0.00-0.031); Immature Granulocyte Percent A 0.7 % (0-0.5); Lymphocytes Absolute Auto 2.45 K/mm3 (0.9-3.2); Lymphocytes Percent Auto 13.6 % (18.3-44.2); Mean Corpuscular HGB Conc 33.1 g/dl (32-36); Mean Corpuscular Hemoglobin 30.1 pg (26-34); Mean Corpuscular Volume 90.9 fl (80-100); Mean Platelet Volume 9.6 fl (7.4-10.4); Monocytes Absolute Auto 1.3 K/mm3 (0.1-0.6); Monocytes Percent Auto 7.4 % (2.6-8.5); Neutrophils Percent Auto 77.6 % (45.5-73.1); Platelet Count Result 241 k/mm3 (150-375); Red Blood Count 4.52 M/mm3 (4.2-5.4); Red Cell Distribution Width 12.5 % (11.5-14.5); White Blood Count 18.1 K/mm3 (4.5-10.0)
[2023-04-22 10:38] LABS: Alanine Aminotransferase 15 U/L (6-35); Albumin Level 4.3 g/dL (3.5-5.1); Alkaline Phosphatase 83 U/L (38-126); Anion Gap 9 mmol/L (8-16); Aspartate Amino Transferase 16 U/L (14-36); Blood Urea Nitrogen 5 mg/dL (7-17); Carbon Dioxide 25 mmol/L (22-30); Chloride 101 mmol/L (98-107); Estimated CRCL calculation 99 ml/min; Estimated Glomerular Filt Rate > 60; Glucose 110 mg/dL (65-110); Potassium 3.3 mmol/L (3.4-5.0); Sodium 135 mmol/L (137-145)
--- NOTE | 2023-04-22 11:25 | PC.NURSE ---
WOW will not load up in room H2, Right pt, medication verified with order and pt bracelet
[2023-04-22] MEDS: SODIUM CHLORIDE 0.9% IV 1,000 ML 999 ML IV CONT (11:27)
[2023-04-22] MEDS: LIDO 2%/EPINEPHRINE 1:100,000 20 ML VIAL (11:27)
[2023-04-22] MEDS: HYDROmorphone HCL INJ (*CRX) 1 MG/ML SYR 0.5 MG IV PUSH (11:27)
[2023-04-22 12:11] LABS: Pregnancy On Board Control Positive; Urine Pregnancy Test Negative
== END 2023-04-22 13:17 | disposition home or self-care (01) ==
PROVIDERS: Emergency Provider Nurse Practitioner Family
DX: L02.31 Cutaneous abscess of buttock (principal); J45.909 Unspecified asthma, uncomplicated; F17.290 Nicotine dependence, other tobacco product, uncomplicated
CPT/HCPCS: 10061; 36415; 74177; 80053; 81025; 85025; 96361; 96374; 99284; J1170; J7030; Q9967

== ENCOUNTER 2023-06-16 18:43 | Emergency (ER) | payer OTHER, SELFPAY ==
[2023-06-16 18:45] VITALS: BP 119/83; PULSE 140; RESP 20; TEMP 36.4; O2SAT 98
[2023-06-16 22:23] VITALS: BP 111/53; PULSE 63; RESP 16; TEMP 37.4; O2SAT 100
--- NOTE | 2023-06-16 23:24 | PC.NURSE ---
report and care given to TIBURCIO Hi. all questions answered.
--- NOTE | 2023-06-16 23:28 | PC.NURSE ---
Assumed care of pt from TIBURCIO Zepeda at this time.
--- NOTE | 2023-06-17 01:27 | ED.SKABFB ---
HPI - Skin/Abscess/Foreign Bdy General Chief complaint: Skin/Abscess/Foreign Body Stated complaint: abscess on buttock Time Seen by Provider: 06/17/23 01:09 History of Present Illness HPI narrative: 22-year-old female reports for evaluation for a pilonidal cyst. Patient has been seen in the emergency department multiple times for her pilonidal cyst. She has had multiple CT scan showing evidence of the pilonidal cyst and has been started on antibiotics in the past. She was last started on Bactrim in April. She is to follow with Dr. Barrett Dudley, general surgery, however he retired 1 year ago and she has not seen a general surgeon since. She states a week ago she began having swelling and pain to this area. She denies drainage, fever, but does report nausea and vomiting yesterday. Related Data Allergies Allergy/AdvReac Type Severity Reaction Status Date / Time No Known Allergies Allergy Verified 04/21/23 07:17 Review of Systems Review of Systems: CONSTITUTIONAL: Denies fever, chills, or sweats. EYES: Denies visual changes, redness, or discharge. ENT: Denies rhinorrhea, congestion, sore throat, or otalgia. CARDIOVASCULAR: Denies chest pain, palpitations, or edema. RESPIRATORY: Denies cough or dyspnea. GASTROINTESTINAL: Denies abdominal pain, nausea, vomiting, or diarrhea. GENITOURINARY: Denies dysuria or hematuria. SKIN: See HPI MUSCULOSKELETAL: Denies back pain, joint pain, or myalgia. NEUROLOGIC: Denies headache, numbness, or weakness. PSYCHIATRIC: Denies anxiety or depression. [facility] Past Medical History Medical History Asthma No active medical problems Family History Family History Mother H/O pilonidal cyst Other Cancer Cerebrovascular accident Social History Social History Smoking status: Current every day smoker Tobacco type: cigars Alcohol intake: current Substance use: former Spiritual care concerns: No Exam Narrative: GENERAL: Well-appearing, well-nourished, and in no acute distress. patient resting comfortably in exam bed. She is pleasant and conversational. Nontoxic appearing. HEAD: Normocephalic, atraumatic. EYES: PERRLA and EOMI. ENT: Nares clear, no rhinorrhea or epistaxis. Mucous membranes moist. NECK: Supple. CHEST: Clear to auscultation. No respiratory distress. HEART: Regular rate and rhythm. No murmur heard. Normal peripheral pulses. ABDOMEN: Soft, nontender, nondistended, normal active bowel sounds. EXTREMITIES: Normal range of motion. No edema. SKIN: Pilonidal cyst to the superior aspect of the gluteal cleft, induration throughout the superior aspect of the left and right glute your the gluteal cleft with the area fluctuation to the left of the gluteal cleft. No warmth or overlying erythema. No active drainage. Area is tender to palpation. NEURO: No focal deficits. Alert and oriented x3 Course Vital Signs Vital signs: Vital Signs Temperature 97.5 F L 06/16/23 18:45 Pulse Rate 140 H 06/16/23 18:45 Respiratory Rate 20 06/16/23 18:45 Blood Pressure 119/83 06/16/23 18:45 Pulse Oximetry 98 06/16/23 18:45 Oxygen Delivery Room Air 06/16/23 18:45 Temperature 99.3 F 06/16/23 22:23 Pulse Rate 63 06/16/23 22:23 Respiratory Rate 16 06/16/23 22:23 Blood Pressure 111/53 L 06/16/23 22:23 Pulse Oximetry 100 06/16/23 22:23 Oxygen Delivery Room Air 06/16/23 18:45 MDM - Skin/Abscess/Foreign Bdy MDM Narrative Medical decision making narrative: 22-year-old female reports for evaluation for return of her pilonidal cyst x1 week. See HPI for further history. Triage vitals are significant for tachycardia of 140 which has since resolved. She is afebrile and her heart rate is no 63. Exam is significant for the above. Bedside ultrasound performed
[2023-06-17] MEDS: ONDANSETRON INJ 4 MG/2 ML VIAL IV PUSH (02:14)
[2023-06-17] MEDS: SODIUM CHLORIDE 0.9% IV 1,000 ML 999 ML IV CONT (02:14)
[2023-06-17] MEDS: KETOROLAC 30 MG/ML VIAL (*BKC) IV PUSH (02:14)
[2023-06-17] MEDS: LIDO 1%/EPINEPHRINE 1:100,000 20 ML VIAL 10 ML INFILTRATE (02:15)
[2023-06-17 02:23] LABS: Basophils Absolute Auto 0.1 K/mm3 (0.0-0.1); Basophils Percent Auto 0.5 % (0.2-1.2); Eosinophils Absolute Auto 0.2 K/mm3 (0-0.3); Hematocrit 40.8 % (37.0-47.0); Hemoglobin 13.9 g/dL (12.0-15.0); Immature Granulocyte Absolute 0.06 K/mm3 (0.00-0.031); Immature Granulocyte Percent A 0.4 % (0-0.5); Lymphocytes Absolute Auto 2.62 K/mm3 (0.9-3.2); Mean Corpuscular HGB Conc 34.1 g/dl (32-36); Mean Corpuscular Hemoglobin 29.9 pg (26-34); Mean Corpuscular Volume 87.7 fl (80-100); Mean Platelet Volume 9.6 fl (7.4-10.4); Monocytes Absolute Auto 1.1 K/mm3 (0.1-0.6); Monocytes Percent Auto 6.5 % (2.6-8.5); Neutrophils Absolute Auto 12.4 K/mm3 (1.3-6.7); Neutrophils Percent Auto 75.6 % (45.5-73.1); Platelet Count Result 335 k/mm3 (150-375); Red Blood Count 4.65 M/mm3 (4.2-5.4); Red Cell Distribution Width 13.2 % (11.5-14.5); White Blood Count 16.4 K/mm3 (4.5-10.0)
[2023-06-17 02:33] LABS: Alanine Aminotransferase 14 U/L (6-35); Albumin Level 4.1 g/dL (3.5-5.1); Alkaline Phosphatase 97 U/L (38-126); Anion Gap 11 mmol/L (8-16); Aspartate Amino Transferase 20 U/L (14-36); Blood Urea Nitrogen 5 mg/dL (7-17); Calcium 9.2 mg/dL (8.4-10.2); Carbon Dioxide 22 mmol/L (22-30); Chloride 106 mmol/L (98-107); Estimated CRCL calculation 150 ml/min; Estimated Glomerular Filt Rate > 60; Glucose 92 mg/dL (65-110); Potassium 3.3 mmol/L (3.4-5.0); Sodium 139 mmol/L (137-145)
[2023-06-17] MEDS: SULFAMETHOXAZOLE/TRIMETHOPRIM 800/160 MG DS TABLET 1 TAB PO (03:12)
[2023-06-17] MEDS: POTASSIUM CHLORIDE 20 MEQ PACKET (FOR LIQUID) PO (03:12)
--- NOTE | 2023-06-17 03:13 | PC.NURSE ---
Normal saline infusion done at this time. Med order d/c on chart and unable to document infusion complete.
[2023-06-17 03:24] VITALS: BP 115/74; PULSE 81; RESP 19; O2SAT 100
== END 2023-06-17 03:28 | disposition home or self-care (01) ==
PROVIDERS: Emergency Provider Physician Assistant
DX: L05.01 Pilonidal cyst with abscess (principal); F17.290 Nicotine dependence, other tobacco product, uncomplicated
CPT/HCPCS: 36415; 80053; 81025; 85025; 96361; 96374; 96375; 99284; A9270; J1885; J2405; J7030